=== PATIENT | female | born 1950 | race African-American/Black ===

== ENCOUNTER 2024-03-30 04:07 | Emergency (ER) | payer MEDICARE, MEDICAID ==
[~2024-03-30] VITALS: Ht 165.1 cm; Wt 63.8 kg
[2024-03-30 04:15] VITALS: BP 206/97; PULSE 102; RESP 15; TEMP 98; O2SAT 100
[2024-03-30 08:22] LABS: CHLORIDE 100 mEq/L (98-107); POTASSIUM 4.3 mEq/L (3.5-5.1); SODIUM 132 mEq/L (136-145)
[2024-03-30 08:23] LABS: CARBON DIOXIDE 24 mEq/L (21-32)
[2024-03-30 08:24] LABS: CALCIUM 9.8 mg/dL (8.7-10.4)
[2024-03-30 08:27] LABS: BASOPHILS % 0.4 % (0.0-2.0); EOSINOPHILS % 1.3 % (0.0-5.0); HEMATOCRIT. 43.7 % (36.0-48.0); HEMOGLOBIN. 14.4 g/dL (12.0-16.0); LYMPHOCYTES % 28.7 % (20.0-50.0); MEAN CORPUSCULAR HGB CONC 32.9 g/dL (31.0-37.0); MEAN CORPUSCULAR VOLUME 85.1 fL (81.0-99.0); MONOCYTES % 6.2 % (2.0-8.0); NEUTROPHILS % 63.4 % (40.0-76.0); PLATELET 254 x1000/uL (130-400); RED BLOOD CELL COUNT 5.13 mill/uL (4.2-5.4); RED CELL DISTRIBUTION WIDTH 13.7 % (11.6-14.6); WHITE BLOOD COUNT 9.9 x1000/uL (4.5-11.0)
[2024-03-30 08:28] LABS: CREATININE 1.3 mg/dL (0.6-1.0); GLUCOSE 211 mg/dL (70-105); UREA NITROGEN BLOOD 12 mg/dL (9-23)
[2024-03-30 08:29] LABS: TROPONIN I HIGH SENSITIVITY 13 ng/L (3.0-34)
== END 2024-03-30 09:17 | disposition home or self-care (01) ==
LOC: ER 04:07
DX: R05.9 Cough, unspecified (principal); E11.9 Type 2 diabetes mellitus without complications; I10 Essential (primary) hypertension; Z90.49 Acquired absence of other specified parts of digestive tract; Z88.5 Allergy status to narcotic agent
CPT/HCPCS: 36415; 71045; 80048; 84484; 85025; 93005; 99283